=== PATIENT | female | born 1970 | race Caucasian/White ===

== ENCOUNTER → 2020-05-12 | Outpatient (CLI) | payer BC | LOC: MC.RAD 09:44 | DX: Z12.31 Encounter for screening mammogram for malignant neoplasm of breast (principal) ==

== ENCOUNTER → 2023-08-07 | Outpatient (CLI) | payer BC | LOC: MC.RAD 08:31 | DX: Z12.31 Encounter for screening mammogram for malignant neoplasm of breast (principal) ==